=== PATIENT | female | born 1975 | race Hispanic/Latino ===

== ENCOUNTER 2024-09-03 20:39 | Inpatient (IN) | payer SELFPAY ==
[2024-09-03] MEDS ORDERED: Ondansetron PF 4 MG/2 ML Vial ONE ×2 (20:49→23:19)
[2024-09-03] MEDS ORDERED: Morphine 2 MG/ML VIAL ONE (20:49)
[2024-09-03] MEDS ORDERED: CEFAZOLIN 2 GM VIAL ONE (20:49)
[2024-09-03] MEDS ORDERED: Sodium Chloride 0.9% 100 ML ONE ×2 (20:50→21:43)
[2024-09-03] MEDS ORDERED: fentaNYL 50 mcg/mL 1 mL Vial ONE (21:04)
[2024-09-03] MEDS ORDERED: Boostrix 0.5 ML (Tdap) VIAL (>/=7 yrs of age) ONE (21:05)
[2024-09-03 21:14] LABS: #Basophils 0.04 10x3/uL (0.0-0.2); %Basophils 0.3 % (0.0-1.0); %Eosinophils 0.9 % (0.0-10.0); %Lymphocytes 12.6 % (21.0-51.0); %Monocytes 5.2 % (0.0-10.0); %Neutrophils 80.5 % (42.0-75.0); Hematocrit 40.4 % (36.0-47.0); Hemoglobin 13.7 g/dL (12.0-16.0); Mean Corpuscular HGB CONC 33.9 g/dL (32.0-36.0); Mean Corpuscular Hemoglobin 32.2 pg (27.0-31.0); Mean Corpuscular Volume 94.8 fL (78.0-98.0); Mean Platelet Volume 9.3 fL (7.4-10.4); Platelet Count 272 10x3/uL (130-400); RBC Distribution Width 12.5 % (11.5-14.5); Red Blood Cell (RBC) Count 4.26 mill/uL (4.20-5.40)
[2024-09-03] MEDS ORDERED: Ondansetron ODT 4 MG TAB PO PRN (21:14)
[2024-09-03] MEDS ORDERED: Dextrose 5% in Water 1,000 ML IV PRN (21:14)
[2024-09-03] MEDS ORDERED: Dextrose 50% Abboject 50 ML SYRINGE SLOW IVP PRN (21:14)
[2024-09-03] MEDS ORDERED: Glucagon 1 MG/ML KIT IM PRN (21:14)
[2024-09-03] MEDS ORDERED: Lactated Ringer's 1,000 ML IV SCH (21:30)
[2024-09-03 21:33] LABS: Prothrombin Time 13.2 sec (12.0-14.7)
[2024-09-03 21:34] LABS: BHCG - Serum Negative (NEGATIVE); PTT 27.5 sec (22.9-36.1); Pregs Control Background? CLEAR/WHITE (CLR/WHITE); Pregs Control Bar Appear? YES (CONTROL BAR)
[2024-09-03 21:41] LABS: ALT (SGPT) 36 U/L (8-55); AST (SGOT) 37 U/L (5-34); Albumin 3.4 g/dL (3.5-5.0); Alkaline Phosphatase 52 U/L (40-110); Anion Gap 11 mmol/L (10-20); BUN (Urea Nitrogen) 13 mg/dL (7.0-18.7); Bilirubin, Total 0.4 mg/dL (0.2-1.2); Calc. Creatinine Clearance 0 mL/min (70-130); Calcium 8.9 mg/dL (7.8-10.44); Carbon Dioxide 20 mmol/L (22-29); Chloride 109 mmol/L (98-107); Estimated GFR 79; Globulin 3.5 g/dL (2.4-3.5); Glucose 147 mg/dL (70-105); Potassium 3.3 mmol/L (3.5-5.1); Protein, Total 6.9 g/dL (6.0-8.3); Sodium 137 mmol/L (136-145)
[2024-09-03] MEDS ORDERED: cefTRIAXone (ROCEPHIN) 1 GM VIAL ONE (21:43)
[2024-09-03] MEDS ORDERED: Famotidine/PF 20 mg/2ml Vial ONE (22:11)
[2024-09-03] MEDS ORDERED: Bupivacaine PF 0.5% 30 ML VIAL ONE (22:15)
[2024-09-03] MEDS ORDERED: PROPOFOL 20 ML ONE (22:23)
[2024-09-03] MEDS ORDERED: Lidocaine 2% PF 5 ML VIAL ONE (22:24)
[2024-09-03] MEDS ORDERED: fentaNYL PF 100 MCG/2 ML SYRINGE ONE (22:24)
[2024-09-03] MEDS ORDERED: SUCCINYLCHOLINE/SOD CL,ISO/PF 200 MG/10 ML SYRINGE FS ONE (22:24)
[2024-09-03] MEDS ORDERED: Rocuronium Bromide 10 MG/ML (10ML VIAL) ONE (22:25)
[2024-09-03] MEDS ORDERED: Ketorolac Tromethamine 30 MG (1 mL) VIAL ONE (23:19)
[2024-09-03] MEDS ORDERED: SUGAMMADEX SODIUM 200 MG/2 ML VIAL ONE (23:19)
[2024-09-03] MEDS ORDERED: Dexamethasone 4 mg/ml Vial ONE (23:19)
[2024-09-03] MEDS ORDERED: Metoclopramide HCl 10 MG (2 mL) VIAL ONE (23:19)
[2024-09-04] MEDS ORDERED: fentaNYL 50 mcg/mL 1 mL Vial ONE ×2 (00:19→01:19)
[2024-09-04] MEDS ORDERED: Promethazine HCl 25 MG/ML VIAL IM PRN (00:21)
[2024-09-04] MEDS ORDERED: Meperidine HCl/PF 25 MG/ML VIAL SLOW IVP PRN (00:21)
[2024-09-04] MEDS ORDERED: Ondansetron HCl/PF 4 MG/2 ML Vial IVP PRN (00:21)
[2024-09-04] MEDS ORDERED: HYDROmorphone 0.5 MG/0.5 ML SYRINGE ONE (00:49)
[2024-09-04] MEDS: Sodium Chloride 0.9% 1,000 ML IV SCH (01:30)
[2024-09-04 04:01] VITALS: BMI 33.0
[2024-09-04] MEDS ORDERED: CEFAZOLIN 2 GM in Sodium Chloride 0.9% 100 ML IVPB SCH (05:00)
[2024-09-04 06:03] LABS: #Basophils Less than 0.03 10x3/uL (0.0-0.2); #Eosinophils Less than 0.03 10x3/uL (0.0-0.7); %Basophils 0.1 % (0.0-1.0); %Lymphocytes 4.7 % (21.0-51.0); %Monocytes 4.3 % (0.0-10.0); %Neutrophils 90.3 % (42.0-75.0); Hematocrit 39.4 % (36.0-47.0); Hemoglobin 13.3 g/dL (12.0-16.0); Mean Corpuscular HGB CONC 33.8 g/dL (32.0-36.0); Mean Corpuscular Hemoglobin 31.7 pg (27.0-31.0); Mean Platelet Volume 9.5 fL (7.4-10.4); Platelet Count 281 10x3/uL (130-400); RBC Distribution Width 12.5 % (11.5-14.5); Red Blood Cell (RBC) Count 4.19 mill/uL (4.20-5.40)
[2024-09-04 06:14] LABS: Anion Gap 12 mmol/L (10-20); BUN (Urea Nitrogen) 11 mg/dL (7.0-18.7); Calc. Creatinine Clearance 94 mL/min (70-130); Calcium 8.4 mg/dL (7.8-10.44); Carbon Dioxide 22 mmol/L (22-29); Chloride 107 mmol/L (98-107); Estimated GFR 73; Glucose 193 mg/dL (70-105); Sodium 137 mmol/L (136-145)
[2024-09-04] MEDS: TETANUS, DIPHTHERIA TOX,ADULT (TDVAX) 0.5 ML VIAL IM ONE (08:31)
[2024-09-04] MEDS: cefTRIAXone\\ROCEPHIN 2 GM in Sodium Chloride 0.9% 100 ML IVPB SCH (09:09)
[2024-09-04] MEDS: Famotidine 20 MG TAB PO SCH (09:09)
[2024-09-04] MEDS: traMADol HCl 50 MG TAB PO PRN (09:15)
[2024-09-04] MEDS: Acetaminophen 325 MG TAB PO PRN (09:15)
[2024-09-04] MEDS: Enoxaparin 40 MG (0.4 mL) SYRINGE SC SCH (20:20)
[2024-09-04] MEDS: Morphine 4 MG/ML VIAL SLOW IVP PRN (22:41)
[2024-09-05 05:46] LABS: #Basophils 0.05 10x3/uL (0.0-0.2); %Basophils 0.3 % (0.0-1.0); %Eosinophils 0.5 % (0.0-10.0); %Lymphocytes 18.1 % (21.0-51.0); %Monocytes 8.8 % (0.0-10.0); %Neutrophils 71.5 % (42.0-75.0); Hematocrit 33.6 % (36.0-47.0); Mean Corpuscular HGB CONC 32.7 g/dL (32.0-36.0); Mean Corpuscular Hemoglobin 31.7 pg (27.0-31.0); Mean Corpuscular Volume 96.8 fL (78.0-98.0); Mean Platelet Volume 9.7 fL (7.4-10.4); Platelet Count 240 10x3/uL (130-400); RBC Distribution Width 13.2 % (11.5-14.5); Red Blood Cell (RBC) Count 3.47 mill/uL (4.20-5.40)
[2024-09-06] MEDS: Senokot S 8.6-50 MG TAB PO SCH (09:26)
[2024-09-06] MEDS: Polyethylene Glycol 3350 17 GM Packet PO SCH (09:27)
[2024-09-06 11:31] VITALS: BP 122/78; TEMP 98.4
== END 2024-09-06 15:31 | disposition home or self-care (01) | DRG 493 ==
LOC: ERS 20:39 → SDC/OP 22:56 → SURG B 22:56 → EDBD 22:57
PROVIDERS: ADMIT Orthopaedic Surgery; ATTEND Orthopaedic Surgery
PROC: 0QSJ04Z Reposition Right Fibula with Internal Fixation Device, Open Approach (ICD-10-PCS; principal; 2024-09-04)
PROC: 0QSG04Z Reposition Right Tibia with Internal Fixation Device, Open Approach (ICD-10-PCS; 2024-09-04)
PROC: 0SSF04Z Reposition Right Ankle Joint with Internal Fixation Device, Open Approach (ICD-10-PCS; 2024-09-04)
DX: S82.831A Other fracture of upper and lower end of right fibula, initial encounter for closed fracture (principal); S82.51XC Displaced fracture of medial malleolus of right tibia, initial encounter for open fracture type IIIA, IIIB, or IIIC; W01.0XXA Fall on same level from slipping, tripping and stumbling without subsequent striking against object, initial encounter; Y93.89 Activity, other specified; Y92.89 Other specified places as the place of occurrence of the external cause
CPT/HCPCS: 27760; 36415; 80048; 80053; 84703; 85025; 85610; 85730; 86850; 86900; 86901; 90471; 90715; 93005; 96365; 96375; C1713; G0390; J0665; J0696; J1100; J1650; J1885; J2272; J2405; J2704; J2765; J3010; J3490; J7030